=== PATIENT | female | born 1995 | race Caucasian/White ===

== ENCOUNTER 2017-02-09 02:53 | Emergency (ER) | payer OTHER ==
[2017-02-09 03:15] LABS: BASOPHILS % (AUTO) 1 % (0-3); EOSINOPHILS % (AUTO) 4 % (0-9); HEMATOCRIT 38 % (35-47); MEAN CORPUSCULAR HGB CONC 34.9 gm/dl (32.0-36.0); MEAN CORPUSCULAR VOLUME 89 fL (81-99); NEUTROPHILS % (AUTO) 46.1 % (37-80)
[2017-02-09] MEDS ORDERED: KETOROLAC TROMETHAMINE 30 MG/ML SOL IM ONE (03:28)
[2017-02-09 03:29] LABS: ALBUMIN 4.3 gm/dl (3.4-5.0); CALCIUM 8.3 mg/dl (8.5-10.1); POTASSIUM 3.3 mMol/L (3.5-5.1)
[2017-02-09] MEDS ORDERED: KETOROLAC TROMETHAMINE 30 MG/ML SOL ONE (03:29)
[2017-02-09 03:33] LABS: COLOR,URINE YELLOW
[2017-02-09 03:34] LABS: APPEARANCE,URINE SL CLOUDY; BILIRUBIN,URINE NEGATIVE (NEGATIVE); GLUCOSE, URINE (UA) NEGATIVE (NEGATIVE); KETONES,URINE NEGATIVE (NEGATIVE); LEUKOCYTE ESTERASE ,URINE 1+ (NEGATIVE); NITRATE,URINE NEGATIVE (NEGATIVE); OCCULT BLOOD,URINE NEGATIVE (NEG-TRACE); RBC,URINE NEG (0-3AV/HPF); UROBILINOGEN,URINE 0.2 (0.2-1.0 EU)
[2017-02-09] MEDS ORDERED: LEVOFLOXACIN 500 MG TAB ONE (03:49)
[2017-02-09] MEDS ORDERED: APAP/OXYCODONE 325/5 TAB ONE (03:49)
[2017-02-09] MEDS ORDERED: APAP/OXYCODONE 325/5 TAB PO ONE (03:50)
[2017-02-09] MEDS ORDERED: LEVOFLOXACIN 500 MG TAB PO ONE (03:50)
[2017-02-09 04:15] VITALS: BP 104/70; PULSE 82; RESP 18; TEMP 98.6; O2SAT 99
== END 2017-02-09 04:21 | disposition home or self-care (01) ==
LOC: ED 02:53
DX: N30.00 Acute cystitis without hematuria (principal)
CPT/HCPCS: 99283 ×3; 81001; 85025; J1885; 36415; 80053; 87088; 96372

== ENCOUNTER 2017-06-24 04:11 | Emergency (ER) | payer OTHER ==
[2017-06-24 04:15] VITALS: RESP 18; TEMP 97.3
[2017-06-24 04:59] VITALS: BP 119/91; PULSE 115; O2SAT 97
[2017-06-24] MEDS ORDERED: IBUPROFEN 400 MG TAB PO ONE (04:59)
[2017-06-24] MEDS ORDERED: IBUPROFEN 600 MG TAB ONE (05:00)
[2017-06-24] MEDS ORDERED: IBUPROFEN 600 MG TAB PO ONE (05:01)
== END 2017-06-24 05:07 | disposition home or self-care (01) ==
LOC: ED 04:11
DX: R07.89 Other chest pain (principal); R05 Cough
CPT/HCPCS: 71046; 99283